=== PATIENT | female | born 1975 | race Caucasian/White ===

== ENCOUNTER 2017-09-21 22:02 | Emergency (ER) | payer SELFPAY ==
[2017-09-21 22:07] VITALS: BP 126/91; PULSE 77; TEMP 98.7; BMI 29.0
[2017-09-21] MEDS ORDERED: morphine CARPU-JECT 4 MG/1 ML DISP.SYRIN IVPUSH ONE (22:12)
[2017-09-21] MEDS ORDERED: KETOROLAC TROMETHAMINE 30 MG/1 ML VIAL IVPUSH ONE (22:12)
--- NOTE | 2017-09-21 22:17 | PDOC ---
History of Present Illness - General Chief Complaint: Pain, Acute Stated Complaint: RT FLANK PAIN Time Seen by Provider: 09/21/17 22:11 History Source: Patient Exam Limitations: No Limitations - History of Present Illness Initial Comments: 09/21/17 22:00 This is a 41-year-old female who comes in complaining of acute onset of right flank pain radiating to her right lower quadrant. Patient said it is associated with some nausea and vomiting but no diarrhea. Patient denies any fevers or chills. Patient denies any history of similar pain in the past. However patient does have a strong family history of her kidney stones in her sisters. PAST MEDICAL HISTORY: no significant history PAST SURGICAL HISTORY: no significant history FAMILY HISTORY: no pertinant history SOCIAL HISTORY: Pt lives with family and is employed. MEDICATIONS: reviewed ALLERGIES: As per nursing notes Review of Systems General: No fevers or chills, no weakness, no weight loss HEENT: No change in vision. No sore throat,. No ear pain CardioVascular: No chest pain or shortness of breath Respiratory:No cough, or wheezing. Gastrointestinal: no nausea, vomitting, diarrhea or constipation, No rectal bleeding Genitourinary: No dysuria, hematuria, or frequency, right flank pain radiating to right lower quadrant Musculoskeletal: No joint or muscle pain or swelling Neurologic: No headache, vertigo, dizziness or loss of consciousness Psychiatric: nor depression Skin: No rashes or easy bruising Endocrine: no increased thirst or abnormal weight change Allergic: no skin or latex allergy All other systems reviewed and normal Exam: General: Well-nourished well-developed individual, no acute distress HEENT: Throat: Normal, tonsils normal, no erythema or exudate Neck: Supple, no meningeal signs, no lymphadenopathy Eyes::Pupils equal reactive and round, extraocular motion intact Chest: Nontender to palpation Cardiac: S1-S2 normal, regular rate and rhythm, no murmurs rubs or gallops Respiratory: Lungs clear to auscultation bilateral Abdomen: Soft, nondistended, normal bowel sounds, moderately tender right lower quadrant, right flank and right CVA area no guarding or rebound Extremities: Warm, dry, no cyanosis, clubbing, or edema Skin: No rashes Neuro: Alert and oriented x3, CN II - XII intact, nonfocal exam with normal strength, normal sensation, normal reflexes, normal gait, Psych: Normal mood and affect Medical decision making this is a 41-year-old female with right flank pain radiating to her right lower quadrant. Patient thinks symptoms most likely are secondary to renal colic given her family history of renal colic. We will obtain a workup to include a CBC, comp, urinalysis, urine test , CAT scan noncontrast stone protocol. Will medicate with morphine and Toradol for pain and give IV fluids will follow-up and reassess. 09/21/17 22:46 Reassessment patient feels much better post morphine and Toradol. Patient denies any nausea at this time. Workup is pending. 09/22/17 00:23 Reassessment. Patient continues to be stable clinically and pain-free Patient's stone protocol CT is still pending Otherwise patient's urinalysis shows a large amount of blood a and a few white cells and bacteria Patient however also has her menses at this time. Patient has a mild elevated white count of 11.6 but no left shift. This most likely is secondary to patient's pain and nausea. Patient's glucose is 126 otherwise her chemistries are unremarkable. 09/22/17 01:18 CT results EXAM: CT ABDOMEN AND PELVIS WITHOUT CONTRAST Partly seen 6 mm nodule left lower lobe, advise followup. 3 mm stone in bladder near right UVJ. No hydronephrosis bilaterally. Punctate stones bilateral kidneys. Enlarged gallbladder containing a 2.9 cm stone in neck region, consider ultrasound if there is concern for early acute cholecystitis. No visible pericholecystic fluid or wall thickening. Unremarkable pancreas. No bowel obstruction, colitis, free fluid or free air. Normal appendix 2.8 cm adenoma right adrenal gland. Small umbilical hernia containing fat. THIS DOCUMENT HAS BEEN ELECTRONICALLY SIGNED Wilma Carpio M.D. 09/22/2017 01:00 MEENU Rahman Please call Imaging Transfer Specialist [phone] ([phone]) with questions Assessment and plan: This is a 41-year-old female who comes in complaining of right flank pain radiating to her right groin area. Patient had a CAT scan of her abdomen that did show a 3 mm stone is passed into the bladder. In addition to that there were also an incidental finding of 2.8 cm adenoma on the right adrenal gland, a 2.9 cm stone in the neck of the gallbladder, and a 6 mm nodule in the left lower lobe of the lung. Patient was made aware of these 3 incidental findings and was also given a copy of her CAT scan patient was told to take a copy of her CAT scan to her primary care doctor and follow up on these 3 incidental findings in addition to her kidney stone. Patient discharged home with her family. Past History - Past Medical History Allergies/Adverse Reactions: Allergies Allergy/AdvReac Type Severity Reaction Status Date / Time No Known Allergies Allergy Unverified 09/21/17 22:03 Home Medications: Ambulatory Orders NK [No Known Home Medication] 09/21/17 COPD: No - Suicide/Smoking/Psychosocial Hx Smoking History: Never smoked *Physical Exam - Vital Signs Last Vital Signs Temp Pulse Resp BP Pulse Ox 98.7 F 77 18 126/91 100 09/21/17 22:04 09/21/17 22:04 09/21/17 22:04 09/21/17 22:04 09/21/17 22:04 ED Treatment Course - LABORATORY CBC & Chemistry Diagram: 09/21/17 22:23 09/21/17 22:23 *DC/Admit/Observation/Transfer Diagnosis at time of Disposition: Renal colic on right side - Discharge Dispostion Disposition: HOME Condition at time of disposition: Stable Admit: No - Referrals - Patient Instructions Additional Instructions: You had a kidney stone that has passed and should not be experiencing any more flank and lower abdominal pain or discomfort. You were given copy of your CAT scan that showed several incidental findings that I have discussed with you and it is important that you take a copy of the CAT scan to your primary care doctor to follow-up on the gallstone, the nodule in your lung and the adenoma on your adrenal gland. Return to the emergency department immediately with ANY new, persistent or worsening symptoms. Continue any medications as previously prescribed by your physician. You should follow up with your primary doctor as soon as possible regarding today's emergency department visit. . Please make sure your doctor reviews the results of your emergency evaluation. Thank you for coming to the Emergency Department today for your care. It was a pleasure to see you today. Please note that your evaluation is INCOMPLETE until you follow-up with your doctor. - Post Discharge Activity
[2017-09-21 22:29] LABS: URINE BILIRUBIN 1+ (NEGATIVE); URINE GLUCOSE (UA) Negative (NEGATIVE); URINE KETONE Trace (NEGATIVE); URINE NITRITE Negative (NEGATIVE); URINE UROBILINOGEN 0.2 (0.2-1.0)
[2017-09-21 22:30] LABS: BASO % 0.7 % (0-2.0); EOS % 1.9 % (0-4.5); HEMATOCRIT 41.2 % (32.4-45.2); HEMOGLOBIN 13.7 GM/dl (10.7-15.3); LYMPH % 22.4 % (8-40); MCH 28.2 pg (25.7-33.7); MCHC 33.4 g/dl (32.0-36.0); MEAN CELL VOLUME 84.5 fl (80-96); MEAN PLT VOLUME 7.9 fl (7.5-11.1); MONO % 5.8 % (3.8-10.2); NEUT % 69.2 % (42.8-82.8); PLATELET COUNT 440 K/MM3 (134-434); RBC 4.87 M/mm3 (3.60-5.2); WHITE BLOOD COUNT 11.6 K/mm3 (4.0-10.8)
[2017-09-21 22:32] LABS: HCG,QUALITATIVE URINE Negative; URINE APPEARANCE BLOODY; URINE BLOOD 3+ (NEGATIVE); URINE COLOR RED; URINE LEUK ESTERASE TRACE (NEGATIVE); URINE PROTEIN 2+ (NEGATIVE)
[2017-09-21 22:41] LABS: EPI CELLS FEW /HPF; URINE BACTERIA FEW /hpf (NEGATIVE); URINE RBC >100 /hpf (0-3)
[2017-09-21 22:47] LABS: ALK PHOS 89 U/L (32-92); ANION GAP 5 (8-16); BLOOD UREA NITROGEN 15 mg/dl (7-18); CALCIUM 8.8 mg/dl (8.4-10.2); CHLORIDE 105 mmol/L (98-107); CO2 23 mmol/L (22-28); GLUCOSE,RANDOM 126 mg/dl (74-106); POTASSIUM 3.7 mmol/L (3.5-5.1); SGOT/AST 21 U/L (10-42); SGPT/ALT 35 U/L (10-40); SODIUM 133 mmol/L (136-145); TOT PROT 7.2 g/dl (6.4-8.3)
[2017-09-21 23:28] LABS: BILIRUBIN,TOTAL < 0.5 mg/dl (0.2-1.0); CREATININE < 0.8 mg/dl (0.6-1.3)
== END 2017-09-22 01:30 | disposition home or self-care (01) ==
LOC: FER 22:02
PROC: 3E0333Z Introduction of Anti-inflammatory into Peripheral Vein, Percutaneous Approach (ICD-10-PCS; principal; 2017-09-21)
PROC: 3E033NZ Introduction of Analgesics, Hypnotics, Sedatives into Peripheral Vein, Percutaneous Approach (ICD-10-PCS; 2017-09-21)
DX: N23 Unspecified renal colic (principal)
CPT/HCPCS: 36415; 74176-TC; 80053; 81003; 81015; 84703; 85025; 87086; 99282-25

== ENCOUNTER 2020-01-25 18:20 | Emergency (ER) | payer OTHER ==
--- NOTE | 2020-01-25 18:24 | PDOC ---
History of Present Illness - General Chief Complaint: Pain, Acute Stated Complaint: LEFT FLANK PAIN Time Seen by Provider: 01/25/20 18:23 Past History - Medical History Allergies/Adverse Reactions: Allergies Allergy/AdvReac Type Severity Reaction Status Date / Time No Known Allergies Allergy Unverified 09/21/17 22:03 Home Medications: Ambulatory Orders NK [No Known Home Medication] 09/21/17 COPD: No - Psycho-Social/Smoking History Smoking History: Never smoked Discharge - Discharge Information Condition: Good - Follow up/Referral - Patient Discharge Instructions - Post Discharge Activity
[2020-01-25 18:35] VITALS: BP 145/84; PULSE 82; TEMP 99; BMI 30.2
[2020-01-25] MEDS ORDERED: SODIUM CHLORIDE 1,000 ML IV STA (18:45)
[2020-01-25] MEDS ORDERED: ONDANSETRON 4 MG/2 ML VIAL IVPB ONE (18:46)
[2020-01-25] MEDS ORDERED: KETOROLAC TROMETHAMINE 30 MG/1 ML VIAL IVPUSH ONE (18:46)
[2020-01-25] MEDS ORDERED: KETOROLAC TROMETHAMINE 30 MG/1 ML VIAL ONE (18:56)
[2020-01-25] MEDS ORDERED: ONDANSETRON 4 MG/2 ML VIAL ONE (18:57)
--- NOTE | 2020-01-25 19:12 | PDOC ---
Documentation entered by Vu Landry SCRIBE, acting as scribe for Len Whitmore MD. Len Whitmore MD: This documentation has been prepared by the Frantz de guzman Angel, SCRIBE, under my direction and personally reviewed by me in its entirety. I confirm that the documentation accurately reflects all work, treatment, procedures, and medical decision making performed by me. History of Present Illness - General Chief Complaint: Pain, Acute Stated Complaint: LEFT FLANK PAIN Time Seen by Provider: 01/25/20 18:23 History Source: Patient Exam Limitations: No Limitations - History of Present Illness Initial Comments: 01/25/20 19:05 The patient is a 44 year old female who presents to the ED with left sided back pain radiating to her left abdomen since 1am last night. The patient states when the pain first started she thought nothing of it until around 3am she was woken up by the pain. The patient notes taking Aleve with minimal relief. The patient states the pain is similar to kidney stones which she has had in the past. The patient has not had a bowel movement today or yesterday. The patient denies vomiting, fever/chills, SOB, or chest pain. Past medical history: Kidney Stones Physical exam: Alert and oriented well-developed well-nourished mild distress due to left flank pain Afebrile, vital signs normal No pallor or icterus. PERRLA, ENT clear Neck supple without bruit mass or nodes Lungs clear with full breath sounds bilaterally. CV regular without murmur rub or gallop pulses full and symmetric no JVD or ed giacomo no bruits Abdomen nondistended. Bowel sounds normal. Soft without mass tenderness organomegaly. No CVAT Extremities no CCE Skin clear, no rash, adequate turgor and wet mucous membranes Neurological intact Impression: Possible recurrent kidney stone, renal colic. Otherwise back strain, musculoskeletal Plan: Urinalysis, CBC and chemistries, further evaluation and imaging depending on results. Past History - Medical History Allergies/Adverse Reactions: Allergies Allergy/AdvReac Type Severity Reaction Status Date / Time No Known Allergies Allergy Unverified 09/21/17 22:03 Home Medications: Ambulatory Orders Naproxen Sodium [Aleve] 220 mg PO PRN PRN 01/25/20 Oxycodone HCl/Acetaminophen [Percocet 5-325 mg Tablet] 1 tab PO Q6H PRN #6 tablet MDD 3 tabs 01/25/20 Tamsulosin HCl [Flomax] 0.4 mg PO DAILY #10 capsule 01/25/20 COPD: No - Psycho-Social/Smoking History Smoking History: Never smoked Review of Systems - Review of Systems Able to Perform ROS?: Yes Comments:: 01/25/20 19:06 GENERAL/CONSTITUTIONAL: No fever or chills. No weakness. HEAD, EYES, EARS, NOSE AND THROAT: No change in vision. No ear pain or dischar ge. No sore throat. CARDIOVASCULAR: No chest pain or shortness of breath. RESPIRATORY: No cough, wheezing, or hemoptysis. GASTROINTESTINAL: No nausea, vomiting, diarrhea or constipation. GENITOURINARY: No dysuria, frequency, or change in urination. MUSCULOSKELETAL: +Left sided back pain radiating to left abdomen. No neck pain. SKIN: No rash NEUROLOGIC: No headache, vertigo, loss of consciousness, or change in strength/sensation. ENDOCRINE: No increased thirst. No abnormal weight change. HEMATOLOGIC/LYMPHATIC: No anemia, easy bleeding, or history of blood clots. ALLERGIC/IMMUNOLOGIC: No hives or skin allergy. *Physical Exam - Physical Exam 01/25/20 19:09 GENERAL: Awake, alert, and fully oriented, in no acute distress HEAD: No signs of trauma EYES: PERRLA, EOMI, sclera anicteric, conjunctiva clear ENT: Auricles normal inspection, hearing grossly normal, nares patent, oropharynx clear without exudates. Moist mucosa NECK: Normal ROM, supple, no lymphadenopathy, JVD, or masses LUNGS: Breath sounds equal, clear to auscultation bilaterally. No wheezes, and no crackles HEART: Regular rate and rhythm, normal S1 and S2, no murmurs, rubs or gallops ABDOMEN: Soft, nontender, normoactive bowel sounds. No guarding, no rebound. No masses EXTREMITIES: Normal range of motion, no edema. No clubbing or cyanosis. No cords, erythema, or tenderness NEUROLOGICAL: Cranial nerves II through XII grossly intact. Normal speech, normal gait SKIN: Warm, Dry, normal turgor, no rashes or lesions noted. ED Treatment Course - LABORATORY CBC & Chemistry Diagram: 01/25/20 18:50 01/25/20 18:53 Medical Decision Making - Medical Decision Making Patient more comfortable with fluids and Toradol. Awaiting results of urinalys is, CBC, chemistries Clinically and hemodynamically stable. Signed out to Dr. Deal 7 PM pending r esults of laboratory studies and further diagnosis and treatment. Discharge - Discharge Information Problems reviewed: Yes Clinical Impression/Diagnosis: Renal colic on left side Condition: Improved Disposition: HOME - Additional Discharge Information Prescriptions: Tamsulosin HCl [Flomax] 0.4 mg PO DAILY #10 capsule Oxycodone HCl/Acetaminophen [Percocet 5-325 mg Tablet] 1 tab PO Q6H PRN #6 tablet MDD 3 tabs PRN Reason: Severe Pain - Follow up/Referral Referrals: Veronica Gamboa CNM [Primary Care Provider] - Harsha Hartley MD [Staff Physician] - - Patient Discharge Instructions Patient Printed Discharge Instructions: Kidney Stones -- Adult Additional Instructions: Drink plenty of fluids Flomax 0.4 mg daily until seen by urologist Ibuprofen/acetaminophen/naproxen as needed for mild to moderate pain Percocet 5/325 1 tab every 6 hours up to 3 times a day as needed for severe pain Return to ER if you have severe, persistent pain or vomiting Follow-up with urologist(Dr Hartley) within the next 5 days - Post Discharge Activity
[2020-01-25 19:18] LABS: BASO % 0.3 % (0-2.0); HEMATOCRIT 40.7 % (32.4-45.2); HEMOGLOBIN 13.6 GM/dl (10.7-15.3); LYMPH % 10.9 % (8-40); MCH 29.1 pg (25.7-33.7); MCHC 33.5 g/dl (32.0-36.0); MEAN CELL VOLUME 86.7 fl (80-96); MEAN PLT VOLUME 8.6 fl (7.5-11.1); MONO % 6.5 % (3.8-10.2); NEUT % 81.3 % (42.8-82.8); PLATELET COUNT 403 K/MM3 (134-434); RBC 4.69 M/mm3 (3.60-5.2); RDW 13.7 % (11.6-15.6); WHITE BLOOD COUNT 13.7 K/mm3 (4.0-10.8)
[2020-01-25 19:19] LABS: EPITHELIAL CELLS FEW /hpf
[2020-01-25 19:27] LABS: ALBUMIN 4.1 g/dl (3.4-5.0); BILIRUBIN,TOTAL 0.6 mg/dl (0.2-1); CALCIUM 9.1 mg/dl (8.5-10); CREATININE 0.9 mg/dl (0.55-1.3); POTASSIUM 3.7 mmol/L (3.5-5.1); TOT PROT 7.4 g/dl (6.4-8.2)
--- NOTE | 2020-01-25 19:59 | PDOC ---
*Physical Exam - Vital Signs Last Vital Signs Temp Pulse Resp BP Pulse Ox 99.0 F 82 16 145/84 99 01/25/20 18:23 01/25/20 18:23 01/25/20 18:23 01/25/20 18:23 01/25/20 18:23 ED Treatment Course - LABORATORY CBC & Chemistry Diagram: 01/25/20 18:50 01/25/20 18:53 - ADDITIONAL ORDERS Additional order review: Laboratory Results 01/25/20 01/25/20 01/25/20 18:53 18:25 18:25 Sodium 137 Potassium 3.7 Chloride 103 Carbon Dioxide 22 Anion Gap 12 BUN 15.0 Creatinine 0.9 Est GFR (CKD-EPI)AfAm 89.50 Est GFR (CKD-EPI)NonAf 77.22 Random Glucose 141 H Calcium 9.1 Total Bilirubin 0.6 AST 48 H ALT 77 H Alkaline Phosphatase 103 Total Protein 7.4 Albumin 4.1 Urine Color Yellow Urine Appearance Clear Urine pH 6.5 Urine Protein Negative Urine Glucose (UA) Negative Urine Ketones Trace Urine Blood Trace-lysed Urine Nitrite Negative Urine Bilirubin Negative Urine Urobilinogen 1.0 Ur Leukocyte Esterase 1+ Urine RBC 2-5 Urine WBC 5-10 Ur Transition Epith Cell Few Urine HCG, Qual Negative 01/25/20 18:50 RBC 4.69 MCV 86.7 MCHC 33.5 RDW 13.7 MPV 8.6 Neutrophils % 81.3 Lymphocytes % 10.9 Monocytes % 6.5 Eosinophils % 1.0 Basophils % 0.3 - Medications Given in the ED: ED Medications Discontinued Medications Generic Name Dose Route Start Last Admin Trade Name Freq PRN Reason Stop Dose Admin Sodium Chloride 1,000 mls @ 1,000 mls/hr 01/25/20 18:45 01/25/20 18:50 Normal Saline - IV 01/25/20 19:44 1,000 mls/hr ASDIR STA Administration Ketorolac Tromethamine 30 mg 01/25/20 18:46 01/25/20 19:00 Toradol Injection - IVPUSH 01/25/20 18:47 30 mg ONCE ONE Administration Ondansetron HCl 4 mg 01/25/20 18:46 01/25/20 19:03 Zofran Injection IVPB 01/25/20 18:47 4 mg ONCE ONE Administration ED Progress Note - Progress Note Progress Note: Care of this patient received from Dr. Rand. Renal stone protocol helical CT of the abdomen/pelvis performed: Preliminary interpretation by Imaging funeral location manager 2 mm calcified stone at the left UVJ junction with mild hydroureter/hydronephrosis there are 2 nonobstructing calcified stones the medullary tissues of the left kidney the larger measuring 3 mm Results discussed with the patient. She is currently comfortable and feels well enough to be discharged. Patient given Flomax 0.4 mg by mouth. Prescription for Percocet 5/325 to be taken up to 3 times a day (#6) sent to her pharmacy, to be used for severe pain. The patient does not have a urologist and was given referral information for who is on service call. She should call the office tomorrow and arrange for follow-up within the next 5 days. He should also follow-up with her general medical doctor and copy of the interpretation of the CT study has been provided for her. She should drink plenty of water and strain her urine (keeping any retained particles for analysis). She should return to the ER if she has any persisting, severe pain or develop vomiting/fever Discharge - Discharge Information Problems reviewed: Yes Clinical Impression/Diagnosis: Renal colic on left side Condition: Improved Disposition: HOME - Additional Discharge Information Prescriptions: Tamsulosin HCl [Flomax] 0.4 mg PO DAILY #10 capsule Oxycodone HCl/Acetaminophen [Percocet 5-325 mg Tablet] 1 tab PO Q6H PRN #6 tablet MDD 3 tabs PRN Reason: Severe Pain - Follow up/Referral Referrals: Veronica Gamboa CNM [Primary Care Provider] - Harsha Hartley MD [Staff Physician] - - Patient Discharge Instructions Patient Printed Discharge Instructions: Kidney Stones -- Adult Additional Instructions: Drink plenty of fluids Flomax 0.4 mg daily until seen by urologist Ibuprofen/acetaminophen/naproxen as needed for mild to moderate pain Percocet 5/325 1 tab every 6 hours up to 3 times a day as needed for severe pain Return to ER if you have severe, persistent pain or vomiting Follow-up with urologist(Dr Hartley) within the next 5 days - Post Discharge Activity
[2020-01-25] MEDS ORDERED: TAMSULOSIN HCL 0.4 MG CAP PO ONE (21:58)
[2020-01-25] MEDS ORDERED: TAMSULOSIN HCL 0.4 MG CAP ONE (21:59)
== END 2020-01-25 22:08 | disposition home or self-care (01) ==
LOC: SUPCPDRO 18:20 → FER 18:20
PROC: 3E0337Z Introduction of Electrolytic and Water Balance Substance into Peripheral Vein, Percutaneous Approach (ICD-10-PCS; principal; 2020-01-25)
PROC: 3E033GC Introduction of Other Therapeutic Substance into Peripheral Vein, Percutaneous Approach (ICD-10-PCS; principal; 2020-01-25)
DX: N23 Unspecified renal colic (principal)
CPT/HCPCS: 36415; 74176-TC; 80053; 81003; 81015; 84703; 85025; 99285-25

== ENCOUNTER 2020-04-19 18:05 | Emergency (ER) | payer OTHER ==
[2020-04-19 18:11] VITALS: BP 135/84; PULSE 90; TEMP 98.7; BMI 34.9
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
--- OUTSIDE RECORDS SUMMARY | 2020-04-19 18:27 | XMS ---
:1975 Author Organization [facility] Care Team Providers Name Role Phone Derick Tejeda MD Unavailable Unavailable JC VITAL Unavailable JC VITAL Unavailable JC VITAL Unavailable JC VITAL Unavailable JC VITAL Unavailable JC VITAL Unavailable Re-disclosure Warning The records that you are about to access may contain information from federally- assisted alcohol or drug abuse programs. If such information is present, then the following federally mandated warning applies: This information has been disclosed to you from records protected by federal confidentiality rules (42 CFR part 2). The federal rules prohibit you from making any further disclosure of this information unless further disclosure is expressly permitted by the written consent of the person to whom it pertains or as otherwise permitted by 42 CFR part 2. A general authorization for the release of medical or other information is NOT sufficient for this purpose. The Federal rules restrict any use of the information to criminally investigate or prosecute any alcohol or drug abuse patient.The records that you are about to access may contain highly sensitive health information, the redisclosure of which is protected by Article 27-F of the [place] Public Health law. If you continue you may haveaccess to information: Regarding HIV / AIDS; Provided by facilities licensed or operated by the [facility] Office of Mental Health; or Provided by the [facility] Office for People With Developmental Disabilities. If such information is present, then the following [facility] mandated warning applies: This information has been disclosed to you from confidential records which are protected by state law. State law prohibits you from making any further disclosure of this information without the specific written consent of the person to whom it pertains, or as otherwise permitted by law. Any unauthorized further disclosure in violation of state law may result in a fine or skilled nursing sentence or both. A general authorization for the release of medical or other information is NOT sufficient authorization for further disclosure. Encounters Encounter Providers Location Date Indications Data Source(s ) P Attender: Derick 04/08/2020 [facility] W mariela Tejeda MD 05:00:00 PM Hospital EDT [facility] Outpatient<td Attender: Katie 05/17/2019 Routine LUDLOW ID="en[id number]">IMMIGRATION [facility] 11:45:00 AM Examination ([place] [facility]td><[facility]/17/2019 Health Center</td><td>05/17/2019</td><td><content 11:5 9:00 PM Center) ID="[id number]">Routine EST Examination</content></td> Routine Examination Outpatient [facility] Care 03/18/2019 12:00:00 AM eCW3 ([facility] A28 EDT - 03/18/2019 12:00:00 Health Care) AM EDT Insurance Providers Payer name Policy type Policy ID Covered Covered alliance party's Policy P quita / Coverage alliance party ID relationship to [place] [employer] ormation type [place] [employer] [place] [id number] SP [id number] [facility] MVP ESSENTIAL [id number] PT [id number] PLAN 4 [facility] HEALTH [id number] SP [id number] CARE CANCER [id number] SP [id number] SERVICE PROGRAM Medicaid [id number] S [id number] Regular Clinic Visit Social History Code Duration Value Status Description Data Source(s ) Smoking 03/18/2019 12:00:00 Never Smoker completed Never Smoker e CW3 ([facility]) Smoking 03/18/2019 12:00:00 Never Smoker completed Never Smoker e CW3 ([facility]) Vital Signs ID Date Data Source UNK Name Value Range Interpretation Code Description Data Source(s) PhenX - pain, 0 0 YONI ([facility] abdominal - type [facility]) protocol pt is here nico to paperwork being comple mike in [facility] but now need updated application Body surface area Derived from 1.83 m2 1.83 m2 YONI ([facility]) pt is here nico to paperwork being comple mike in [facility] but now need updated application Body mass index (BMI) 36.3 kg/m2 36.3 kg/m2 GRE ENWAY ([place] [[facility]] [facility]) pt is here nico to paperwork being comple mike in [facility] but now need updated application Body weight 189 [lb_av] 189 [lb_av] YONI ([facility]) pt is here nico to paperwork being comple mike in [facility] but now need updated application Body height 60.5 [in_us] 60.5 [in_us] YONI ([facility]) pt is here nico to paperwork being comple mike in [facility] but now need updated application Body temperature 97.6 [degF] 97.6 [degF] GREENW AY ([facility]) pt is here nico to paperwork being comple mike in [facility] but now need updated application Respiratory rate 18 /min 18 /min YONI ([facility]) pt is here nico to paperwork being comple mike in [facility] but now need updated application Heart rate 85 /min 85 /min YONI ([facility]) pt is here nico to paperwork being comple mike in [facility] but now need updated application Diastolic blood pressure 76 mm[Hg] 76 mm[Hg] YONI ([facility]) pt is here nico to paperwork being comple mike in [facility] but now need updated application Systolic blood pressure 120 mm[Hg] 120 mm[Hg] Jun MATAReyRIVAS ([facility]) pt is here nico to paperwork being comple mike in [facility] but now need updated application Diastolic blood pressure 75 mm[Hg] 75 mm[Hg] eCW3 ([facility]) Systolic blood pressure 123 mm[Hg] 123 mm[Hg] e CW3 ([facility]) Body temperature 98.3 [degF] 98.3 [degF] eCW3 ( [facility]) Body mass index (BMI) [Ratio] 35.34 kg/m2 35.34 kg/m2 eCW3 ([facility]) Body weight 184 [lb_av] 184 [lb_av] eCW3 ([facility]) Body height 60.50 [in_i] 60.50 [in_i] eCW3 ([facility])
[2020-04-19] MEDS ORDERED: ACETAMINOPHEN 500 MG TABLET (FP) PO ONE (18:55)
[2020-04-19] MEDS ORDERED: ACETAMINOPHEN 500 MG TABLET (FP) ONE (18:57)
[2020-04-19 18:58] LABS: BASO % 0.9 % (0-2.0); EOS % 2.9 % (0-4.5); HEMATOCRIT 40.8 % (32.4-45.2); HEMOGLOBIN 13.4 GM/dl (10.7-15.3); LYMPH % 18.5 % (8-40); MCH 28.4 pg (25.7-33.7); MEAN CELL VOLUME 86.2 fl (80-96); MONO % 6.1 % (3.8-10.2); NEUT % 71.6 % (42.8-82.8); PLATELET COUNT 414 K/MM3 (134-434); RBC 4.74 M/mm3 (3.60-5.2); RDW 13.5 % (11.6-15.6); WHITE BLOOD COUNT 8.5 K/mm3 (4.0-10.8)
[2020-04-19 19:14] LABS: BILIRUBIN,TOTAL 0.4 mg/dl (0.2-1); CALCIUM 9.2 mg/dl (8.5-10); CREATININE 0.6 mg/dl (0.55-1.3); POTASSIUM 4.1 mmol/L (3.5-5.1); TOT PROT 7.4 g/dl (6.4-8.2)
== END 2020-04-19 19:26 | disposition home or self-care (01) ==
LOC: FER 18:05
DX: T21.22XA Burn of second degree of abdominal wall, initial encounter (principal)
CPT/HCPCS: 36415; 80053; 85025; 99283-25

== ENCOUNTER 2023-08-12 22:20 | Emergency (ER) | payer BC, OTHER ==
[2023-08-12 22:31] VITALS: BP 171/85; PULSE 122; RESP 18; TEMP 98.7; BMI 25.4
[2023-08-12] MEDS ORDERED: ACETAMINOPHEN 500 MG TABLET (FP) ONE (23:33)
[2023-08-12] MEDS ORDERED: SULFAMETHOXAZOLE/TRIMETHOPRIM 800MG/160MG D.S. TABLET ONE (23:33)
[2023-08-12] MEDS ORDERED: DIPHTH,PERTUSS(ACELL),TET 0.5 ML DISP.SYRIN IM ONE (23:34)
[2023-08-12] MEDS: ACETAMINOPHEN 500 MG TABLET (FP) PO ONE (23:39)
[2023-08-12] MEDS: DIPHTH,PERTUSS(ACELL),TET 0.5 ML DISP.SYRIN IM ONE (23:39)
[2023-08-12] MEDS: SULFAMETHOXAZOLE/TRIMETHOPRIM 800MG/160MG D.S. TABLET PO ONE (23:40)
== END 2023-08-12 23:45 | disposition home or self-care (01) ==
LOC: FER 22:20
PROC: 0HQ1XZZ Repair Face Skin, External Approach (ICD-10-PCS; principal; 2023-08-12)
PROC: 3E0234Z Introduction of Serum, Toxoid and Vaccine into Muscle, Percutaneous Approach (ICD-10-PCS; 2023-08-12)
DX: S01.21XA Laceration without foreign body of nose, initial encounter (principal); S00.531A Contusion of lip, initial encounter; W01.0XXA Fall on same level from slipping, tripping and stumbling without subsequent striking against object, initial encounter
CPT/HCPCS: 70450-TC; 70486-TC; 90715; 99284-25

== ENCOUNTER 2023-08-21 10:39 | Emergency (ER) | payer BC ==
[2023-08-21 10:53] VITALS: BP 115/50; PULSE 96; RESP 18; TEMP 98.8; BMI 25.4
== END 2023-08-21 11:14 | disposition home or self-care (01) ==
LOC: FER 10:39
DX: Z48.02 Encounter for removal of sutures (principal)
CPT/HCPCS: 99281-25